=== PATIENT | female | born 1975 | race Two or more races ===

== ENCOUNTER 2018-01-11 19:39 | Observation (INO) | payer OTHER ==
[2018-01-11] MEDS ORDERED: DOCUSATE SODIUM 100 MG CAP PO (21:00)
[2018-01-11] MEDS ORDERED: ONDANSETRON 4 MG INJ IV (21:00)
[2018-01-11] MEDS ORDERED: NACL 0.9% 3 ML SYG IV (21:00)
[2018-01-11] MEDS ORDERED: BISACODYL (EC) 5 MG TAB PO (21:00)
[2018-01-11] MEDS: ACETAMINOPHEN 325 MG TAB PO (21:20)
[2018-01-11] MEDS ORDERED: KETOROLAC 15 MG INJ IV (22:22)
[2018-01-11 22:29] LABS: ADD MAN DIFF? NO
[2018-01-11 22:34] LABS: BASOPHIL # 0.1 10^3/ul (0.0-0.1); EOSINOPHILS # 0.4 10^3/ul (0.0-0.5); EOSINOPHILS % 4.7 % (0.0-7.0); HEMATOCRIT 38.2 % (37.0-47.0); HEMOGLOBIN 13.2 g/dl (12.0-16.0); LYMPHOCYTES # 3.8 10^3/ul (0.8-2.9); LYMPHOCYTES % 45.5 % (15.0-51.0); MEAN CORPUSCULAR HEMOGLOBIN 32.2 pg (29.0-33.0); MEAN CORPUSCULAR HGB CONC 34.6 g/dl (32.0-37.0); MEAN CORPUSCULAR VOLUME 93.2 fl (82.0-101.0); MEAN PLATELET VOLUME 9.7 fl (7.4-10.4); MONOCYTE # 0.6 10^3/ul (0.3-0.9); MONOCYTES % 7.3 % (0.0-11.0); NEUTROPHIL # 3.4 10^3/ul (1.6-7.5); NEUTROPHILS % 41.3 % (39.0-77.0); PLATELET COUNT 207 10^3/UL (140-415); RED CELL DISTRIBUTION WIDTH 13.3 % (11.5-14.5)
[2018-01-11 22:34] LABS: WHITE BLOOD COUNT 8.3 10^3/ul (4.8-10.8)
[2018-01-11] MEDS: KETOROLAC 30 MG INJ IV (22:36)
[2018-01-11 22:51] LABS: CREATINE KINASE 105 IU/L (23-200)
[2018-01-11 22:53] LABS: ALANINE AMINOTRANSFERASE 21 IU/L (13-69); ALBUMIN 4.1 g/dl (3.3-4.9); ALBUMIN/GLOBULIN RATIO 1.86; ALKALINE PHOSPHATASE 40 IU/L (42-121); ANION GAP 15 (8-16); ASPARTATE AMINO TRANSFERASE 16 IU/L (15-46); BILIRUBIN,INDIRECT 0.2 mg/dl (0-1.1); BILIRUBIN,TOTAL 0.2 mg/dl (0.2-1.3); BLOOD UREA NITROGEN 10 mg/dl (7-20); CALCIUM 9.2 mg/dl (8.4-10.2); CARBON DIOXIDE 23 mmol/L (21-31); CHLORIDE 106 mmol/L (97-110); CHOL/HDL RATIO 2.5 RATIO; CHOLESTEROL 161 mg/dl (100-200); CREATININE 0.79 mg/dl (0.44-1.00); GLUCOSE 165 mg/dl (70-220); HDL CHOLESTEROL 64 mg/dl (34-88); LDL CHOLESTEROL,CALCULATED 81 mg/dl; MAGNESIUM 2.1 mg/dl (1.7-2.5); POTASSIUM 3.9 mmol/L (3.5-5.1); SODIUM 140 mmol/L (135-144); TOTAL PROTEIN 6.3 g/dl (6.1-8.1); TRIGLYCERIDES 79 mg/dl (0-149)
[2018-01-11 23:01] LABS: CK-MB 1.01 ng/ml (0.0-2.4)
[2018-01-11 23:19] LABS: TROPONIN-I < 0.012 ng/ml (0.00-0.12)
[2018-01-12 03:41] LABS: CREATINE KINASE 119 IU/L (23-200)
[2018-01-12 03:49] LABS: CK INDEX 0.8; CK-MB 0.91 ng/ml (0.0-2.4)
[2018-01-12 03:50] LABS: TROPONIN-I < 0.012 ng/ml (0.00-0.12)
[2018-01-12] MEDS: IOHEXOL 100 ML (05:54)
[2018-01-12] MEDS: SOD CHLORIDE 0.9% 100 ML (05:54)
[2018-01-12] MEDS: ASPIRIN (EC) 81 MG TAB PO (12:15)
[2018-01-12] MEDS: ATORVASTATIN 20 MG TAB PO (22:32)
[2018-01-13 06:46] LABS: ADD MAN DIFF? NO
[2018-01-13 06:47] LABS: BASOPHIL # 0.1 10^3/ul (0.0-0.1); BASOPHILS % 1.1 % (0.0-2.0); EOSINOPHILS # 0.4 10^3/ul (0.0-0.5); EOSINOPHILS % 6.4 % (0.0-7.0); HEMATOCRIT 37.5 % (37.0-47.0); LYMPHOCYTES # 3.1 10^3/ul (0.8-2.9); LYMPHOCYTES % 47.4 % (15.0-51.0); MEAN CORPUSCULAR HEMOGLOBIN 32.4 pg (29.0-33.0); MEAN CORPUSCULAR HGB CONC 34.7 g/dl (32.0-37.0); MEAN CORPUSCULAR VOLUME 93.5 fl (82.0-101.0); MEAN PLATELET VOLUME 9.9 fl (7.4-10.4); MONOCYTE # 0.6 10^3/ul (0.3-0.9); NEUTROPHIL # 2.3 10^3/ul (1.6-7.5); NEUTROPHILS % 35.9 % (39.0-77.0); PLATELET COUNT 204 10^3/UL (140-415); RED BLOOD COUNT 4.01 10^6/ul (4.20-5.40); RED CELL DISTRIBUTION WIDTH 13.5 % (11.5-14.5)
[2018-01-13 06:47] LABS: WHITE BLOOD COUNT 6.4 10^3/ul (4.8-10.8)
[2018-01-13 07:09] LABS: ANION GAP 13 (8-16); BLOOD UREA NITROGEN 13 mg/dl (7-20); CALCIUM 9.1 mg/dl (8.4-10.2); CARBON DIOXIDE 26 mmol/L (21-31); CHLORIDE 107 mmol/L (97-110); CREATININE 0.83 mg/dl (0.44-1.00); GLUCOSE 98 mg/dl (70-220); SODIUM 142 mmol/L (135-144)
[2018-01-13 07:11] LABS: CHOLESTEROL 159 mg/dl (100-200)
[2018-01-13 07:11] LABS: CHOL/HDL RATIO 2.4 RATIO; HDL CHOLESTEROL 65 mg/dl (34-88); LDL CHOLESTEROL,CALCULATED 82 mg/dl; TRIGLYCERIDES 62 mg/dl (0-149)
[2018-01-13 07:57] LABS: ERYTHROCYTE SEDIMENTATION RATE 2 mm/Hr (0-20)
[2018-01-13] MEDS: ASPIRIN (EC) 81 MG TAB PO (08:19)
== END 2018-01-13 15:48 | disposition home or self-care (01) ==
LOC: MS4 19:39
DX: R20.0 Anesthesia of skin (principal); G43.109 Migraine with aura, not intractable, without status migrainosus; R47.81 Slurred speech; R51 Headache; M54.2 Cervicalgia; F17.200 Nicotine dependence, unspecified, uncomplicated
CPT/HCPCS: 70498; 70544; 70551; 72142; 80048; 80053; 80061; 82550; 82553; 83036; 83735; 84443; 84484; 85025; 85651; 93306; 93880; 99217; G0378